=== PATIENT | female | born 1955 | race Caucasian/White ===

== ENCOUNTER 2023-07-27 06:11 | Day surgery (SDC) | payer MEDICARE, OTHER, SELFPAY ==
--- NOTE | 2023-06-22 12:29 | CM ---
Patient is scheduled for an elective L THR on 07/27/23- she is a same day patient. Spoke with patient prior to surgery. Patient had a R THR at in 2020. Reintroduced role of Orthopedic Navigator. Patient reports that she lives alone in a split level
home. There is one step to enter, five steps to the second floor and seven to the third. She currently functions independently. She has a cane, commode, raised toilet seat, hip kit, firm cushion and rolling walker. She has never had VN services. PCP
is Yancy Carson.
Discussed orthopedic program and post surgical plans. Reviewed that she will have VN services initially (medicare.gov website and ratings reviewed) and will then start outpatient PT. Patient selects [facility] (face sheet faxed to [facility] to facilitate
confirmation of benefits) for his home care needs and will go to [facility] for outpatient PT.
Patient is in agreement with plan and states that her daughter will be staying with her for a week.
Patient will complete online education.
Plan: Orthopedic Navigator will remain available to assist with the care of patient and will reassess discharge needs after surgery.
[2023-07-07 08:42] VITALS: BMI 38.9
[2023-07-07 10:27] LABS: Hematocrit 38.3 % (37.0-47.0); Hemoglobin 12.9 g/dL (12.0-16.0); Mean Corp Hgb Conc. 33.7 g/dL (33.0-37.0); Mean Corpuscular Hgb 32.2 pg (27.0-31.0); Mean Corpuscular Volume 95.5 fL (81.0-99.0); Mean Platelet Volume 9.7 fL (7.4-10.4); Platelet Count 240 10^3/uL (130-400); Red Blood Cell Count 4.01 10^6/uL (4.20-5.40); Red Cell Dist. Width 14.8 % (11.5-14.5); White Blood Cell Count 3.1 10^3/uL (4.8-10.8)
[2023-07-07 10:56] LABS: ALT (SGPT) 22 U/L (0-35); AST (SGOT) 26 U/L (14-36); Albumin 3.8 g/dl (3.5-5.0); Alkaline Phosphatase 86 U/L (38-126); Blood Urea Nitrogen 23 mg/dl (7-17); Calcium 9.1 mg/dl (8.4-10.2); Carbon Dioxide 29 mmol/L (22-30); Chloride 102 mmol/L (98-107); Estimated Creatinine Clearance 83 ml/min; Glucose 87 mg/dl (70-99); Potassium 3.8 mmol/L (3.5-5.1); Sodium 138 mmol/L (135-145); Total Bilirubin 0.5 mg/dl (0.2-1.3); Total Protein 7.2 g/dl (6.3-8.2); eGFR > 60.00
[2023-07-07 13:08] LABS: Glycohemoglobin (HgbA1c) 5.7 % (4.0-5.6)
[2023-07-07 16:19] VITALS: BMI 38.9
[2023-07-27] VITALS (12 sets, daily range): BP systolic 91–125; BP diastolic 44–92; PULSE 88; BMI 38.9
[2023-07-27] MEDS: MOBIC 15 MG PO (07:28)
[2023-07-27] MEDS: NORMOSOL-R 1000 IV (07:29)
[2023-07-27] MEDS: TYLENOL 650 MG PO (07:29)
--- NOTE | 2023-07-27 08:19 | W.DS.TRANS ---
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
-
Discharge Instructions:
Sleep Apnea Risk Intermediate
Discharge Diagnosis/Procedures L LASHANDA Lopez 07/27/23
Diet No restrictions
Activity With Walker
Driving Restrictions No driving
Bathing Restrictions OK to Shower
Instructions:
Stand-Alone Forms: SDS Total Hip and Knee D/C
Changes to Home Medications: Yes
Discharge Medications:
DC Medications w/original date entered in [employer]
folic acid 1 mg tablet 1 mg PO HS 03/19/20
levothyroxine 50 mcg tablet 50 mcg PO DAILY 03/19/20
Simponi ARIA 1 dose IV Q8W 07/06/23
albuterol sulfate 90 mcg/actuation aerosol inhaler (ProAir HFA) 2 puff inhalation Q6H PRN asthma 07/06/23
gslfhnmzwj-upzjymdmfomht-cbwedciu 50 mg-300 mg-40 mg capsule (Fioricet) 1 cap PO Q4H PRN headaches 07/06/23
cholecalciferol (vitamin D3) 50 mcg (2,000 unit) capsule (Vitamin D3) 50 mcg PO DAILY 07/06/23
epinephrine 0.3 mg/0.3 mL injection, auto-injector (EpiPen) 0.3 mg IM ONCE PRN allergic reaction 07/06/23
fluticasone 250 mcg-salmeterol 50 mcg/dose blistr powdr for inhalation (Advair Diskus) 1 inh inhalation BID PRN asthma flare 07/06/23
loratadine 10 mg tablet (Claritin) 10 mg PO HS 07/06/23
losartan 50 mg tablet 50 mg PO DAILY 07/06/23
methotrexate (PF) 25 mg/0.5 mL subcutaneous auto-injector 50 mg SC QWEEK 07/06/23
rosuvastatin 10 mg tablet (Crestor) 10 mg PO DAILY 07/06/23
sertraline 50 mg tablet (Zoloft) 50 mg PO HS 07/06/23
triamcinolone acetonide 55 mcg nasal spray aerosol (Nasacort) 1 spray intranasal DAILY PRN allergies 07/06/23
cefadroxil 500 mg capsule 500 mg PO BID infection prevention #14 caps 07/07/23
dexamethasone 4 mg tablet 4 mg PO BID inflammation #6 tabs 07/07/23
famotidine 20 mg tablet 20 mg PO HS GI prophylaxis #30 tabs 07/07/23
gabapentin 300 mg capsule 300 mg PO HS sleep/pain #10 caps 07/07/23
meloxicam 15 mg tablet 15 mg PO DAILY anti-inflammatory #7 tabs 07/07/23
mupirocin 2 % topical ointment 1 applic topical BID infection prevention #1 tube 07/07/23
oxycodone 5 mg tablet 5 - 10 mg (1 - 2 x 5 mg) PO Q6HPRN PRN 1 tab moderate-2 tabs severe pain #30 tabs 07/07/23
acetaminophen 325 mg capsule (Tylenol) 650 mg (2 x 325 mg) PO QID #2 caps 07/27/23
aspirin 325 mg tablet 325 mg PO DAILY blood clot prevention #1 tab 07/27/23
docusate sodium 100 mg capsule (Colace) 100 mg PO BID stool softner #1 cap 07/27/23
hydrochlorothiazide 25 mg tablet 25 mg PO DAILY #0 tabs 07/27/23
magnesium hydroxide 400 mg/5 mL oral suspension (Milk of Magnesia) 30 ml PO HS PRN Constipation #1 mL 07/27/23
sennosides 8.6 mg tablet (Senokot) 17.2 mg (2 x 8.6 mg) PO BID laxative #2 tabs 07/27/23
Home Medication Changes
cefadroxil 500 mg capsule 500 mg PO BID infection prevention #14 caps 07/07/23
dexamethasone 4 mg tablet 4 mg PO BID inflammation #6 tabs 07/07/23
famotidine 20 mg tablet 20 mg PO HS GI prophylaxis #30 tabs 07/07/23
gabapentin 300 mg capsule 300 mg PO HS sleep/pain #10 caps 07/07/23
meloxicam 15 mg tablet 15 mg PO DAILY anti-inflammatory #7 tabs 07/07/23
mupirocin 2 % topical ointment 1 applic topical BID infection prevention #1 tube 07/07/23
oxycodone 5 mg tablet 5 - 10 mg (1 - 2 x 5 mg) PO Q6HPRN PRN 1 tab moderate-2 tabs severe pain #30 tabs 07/07/23
Pending Results: No
--- NOTE | 2023-07-27 11:53 | CM ---
Patient had planned L THR today. Met with patient and her daughter at bedside to review discharge plans. Patient will be returning home today with services through [facility]N. On , 07/29, patient will start outpatient PT at [facility]. Reviewed
MD follow up in two weeks and patient is aware of need to schedule appointment.
Patient has her rolling walker here with her.
PT and VN were kept updated as to progress and discharge plans.
[2023-07-27] MEDS: ANCEF 5 IV (12:04)
== END 2023-07-27 13:23 | disposition home or self-care (01) ==
LOC: SDS 06:11
PROVIDERS: ATTENDING PHYSICIAN Specialist; FAMILY PHYSICIAN Internal Medicine; OTHER PHYSICIAN Internal Medicine Rheumatology; OTHER PHYSICIAN Physician Assistant Medical
DX: M16.12 Unilateral primary osteoarthritis, left hip (principal); M06.9 Rheumatoid arthritis, unspecified; E66.9 Obesity, unspecified; Z68.38 Body mass index [BMI] 38.0-38.9, adult; Z87.891 Personal history of nicotine dependence
CPT/HCPCS: 27130; C1776; C1713; 36415; 73502; 80053; 83036; 85027; 87070; 93005; 97162

== ENCOUNTER → 2024-10-03 15:51 | Outpatient (REF) | payer MEDICARE, OTHER, SELFPAY | LOC: WDC 15:51 | PROVIDERS: ATTENDING PHYSICIAN Nurse Practitioner | DX: Z12.31 Encounter for screening mammogram for malignant neoplasm of breast (principal) | CPT/HCPCS: 77063; 77067 ==

== ENCOUNTER → 2025-02-15 10:50 | Outpatient (REF) | payer MEDICARE, OTHER, SELFPAY | LOC: HWRAD 10:50 | PROVIDERS: ATTENDING PHYSICIAN Internal Medicine Rheumatology; FAMILY PHYSICIAN Internal Medicine | DX: M81.0 Age-related osteoporosis without current pathological fracture (principal); Z13.820 Encounter for screening for osteoporosis | CPT/HCPCS: 77080 ==